=== PATIENT | female | born 1970 | race Caucasian/White ===

== ENCOUNTER 2016-12-10 07:03 | Observation (INO) | payer OTHER ==
[~2016-12-10] VITALS: Ht 172.7 cm; Wt 105.8 kg
--- NOTE | ~2016-12-10 | OR ---
PATIENT'S NAME: NATALI COLLINS [facility] AGE: 46 Y [address] ROOM: [place] [address] LOCATION: [facility] ADMIT DATE: 12/10/2016 OR/Procedure Report DISCHARGE DATE: FAMILY PHYSICIAN: Oscar Solano PA-C ATTENDING PHYSICIAN: DEONTE MCDONALD SURGEON: Deotne Mcdonald MD FISHING ROD TRIMMER: Tomas Anand MD. DATE OF PROCEDURE: 12/10/2016 PREOPERATIVE DIAGNOSES: 1. Abnormal uterine bleeding. 2. Chronic anemia. 3. Uterine prolapse, grade 3. POSTOPERATIVE DIAGNOSES: 1. Abnormal uterine bleeding. 2. Chronic anemia. 3. Uterine prolapse, grade 3. PROCEDURE PERFORMED: Total vaginal hysterectomy, bilateral salpingectomy, and sacrospinous ligament suspension. ANESTHESIA: Spinal. FINDINGS: Grade 3 prolapse of the cervix. Normal uterus and fallopian tubes. A 2-cm simple right ovarian cyst. Normal left ovary. Enterocele. ESTIMATED BLOOD LOSS: 100 mL. COMPLICATIONS: None. INDICATIONS: The patient is a 46-year-old female with abnormal uterine bleeding and chronic anemia due to her bleeding. She also complained of a prolapse of her uterus. Desired definitive surgical management. DESCRIPTION OF PROCEDURE: The patient was taken to the operating room where spinal anesthesia was placed. She was then placed in dorsal lithotomy position. She was prepped and draped in the usual sterile fashion. A time- out was performed. A weighted speculum was placed in the patient's vagina posteriorly, and a right angle retractor was used anteriorly. The cervix was visualized and grasped with a thyroid Filemon clamp. 1% lidocaine with epinephrine was injected circumferentially around the cervix at the cervicovaginal junction. A scalpel was then used to circumferentially incise at the cervicovaginal junction. Sharp and blunt dissection was then used to enter the abdomen anteriorly and posteriorly. Using the LigaSure device, the PATIENT'S NAME: NATALI COLLINS [facility] AGE: 46 Y [address] ROOM: [place] [address] LOCATION: [facility] ADMIT DATE: 12/10/2016 OR/Procedure Report DISCHARGE DATE: FAMILY PHYSICIAN: Oscar Solano PA-C ATTENDING PHYSICIAN: DEONTE MCDONALD uterosacral ligament on the patient's left was ligated and cut. The same was performed on the patient's right. The LigaSure was then used to ligate and cut the cardinal ligaments bilaterally. The same was performed with the LigaSure device bilaterally with the uterine arteries. The LigaSure was then used to ligate and cut the broad ligament bilaterally. Two tenaculums were then used to deliver the fundus posteriorly. A hysterectomy clamp was placed on the patient's left utero-ovarian ligament and fallopian tube. The LigaSure device was then used to ligate and cut this pedicle. The same was performed on the patient's right. Using an 0 Vicryl, the patient's left utero-ovarian ligament was ligated with a transfixing stitch. The same was performed on the patient's right. The patient's right fallopian tube was then grasped with a Teresita clamp. It was then clamped off with a hysterectomy clamp and excised and this was ligated with 0 Vicryl. The same was performed on the patient's left. Hemostasis was noted. A stitch was placed at the angle bringing the pedicle to the cuff with 0 Vicryl. This was performed bilaterally. The peritoneum was then closed with 2-0 Vicryl in a pursestring fashion. The vaginal cuff was then closed in a running locked fashion with 0 Vicryl. Attention was then paid to the posterior vagina which was injected with 1% lidocaine with epinephrine. A scalpel was then used to make a transverse incision on the posterior vaginal wall. The submucosa was then undermined and incised vertically in the midline with Metzenbaum scissors. The submucosa was dissected with sharp and blunt dissection. An enterocele was noted, this was repaired with 2-0 Vicryl in a pursestring fashion by closing the peritoneum and then another pursestring over that to close the defect. We then dissected out and identified the sacrospinous ligament, and a single interrupted stitch of 0 [place]-Patrice suture was placed in the belly of this ligament, it was then secured to the medial aspect of the vaginal cuff, this was tied down. This was performed on the patient's right. Redundant vaginal mucosa was then excised with Carlson scissors. The vaginal mucosa was then closed in a running continuous locked fashion with 0 Vicryl suture. Hemostasis was noted. Aguirre catheter was then inserted and all vaginal instruments were removed. Vaginal packing was placed. Instrument, sponge, and needle counts were correct at the conclusion of the case. DISPOSITION: The patient is stable to PACU. MD LILLY OLIVER/heide /[id number] d: 12/10/16 1758 t: 12/11/16 1119, OPERATIVE SUMMARY
--- NOTE | ~2016-12-10 | DS ---
PATIENT'S NAME: NATALI COLLINS [facility] AGE: 46 Y [address] ROOM: [address] [address] LOCATION: BS ADMIT DATE: 12/10/2016 Discharge Summary DISCHARGE DATE: 12/12/2016 FAMILY PHYSICIAN: Oscar Solano PA-C ATTENDING PHYSICIAN: Deonte Mcdonald DISCHARGE DIAGNOSES: 1. Status post total vaginal hysterectomy and bilateral salpingectomies. 2. Chronic anemia as well as anemia from acute blood loss. REASON FOR ADMISSION: Hysterectomy. PROCEDURES DURING ADMISSION: Total vaginal hysterectomy, bilateral salpingectomies, and sacrospinous ligament suspension. HOSPITAL COURSE: The patient is a 46-year-old female, who presented for scheduled hysterectomy. Her hemoglobin on admission was found to be 8.1 from her abnormal uterine bleeding. She underwent a total vaginal hysterectomy and bilateral salpingectomies as well as sacrospinous ligament suspension with an EBL 50 mL. Her hemoglobin on postoperative day #1 was 6.7, which was appropriate for receiving IV fluids and undergoing surgery. However, the patient was symptomatic, and therefore received 2 units packed red blood cells. She was ambulating, urinating, and tolerating p.o. and desired to be discharged home on postoperative #2. DISCHARGE INSTRUCTIONS: The patient is instructed nothing in vagina for 6 weeks. No lifting greater than 15 pounds. No driving on narcotics. She is to call if fever greater 100.4, heavy vaginal bleeding. FOLLOWUP: The patient will follow up in the clinic in 2 weeks. MD LILLY OLIVER/heide /[id number] d: 12/17/16318 t: 01/15/171922, DISCHARGE SUMMARY
[~2016-12-10 07:03] MED LIST: LEVOTHROID (S150 MCG PO; LISINOPRIL-HCT1 EAC1 PO; THERA-VITE W/ B1 TAB PO
[2016-12-10 07:43] LABS: BASOPHIL # 0.1 K/uL (0.0-0.2); BASOPHIL % 0.7 %; EOSINOPHIL # 0.2 K/uL (0.0-0.5); EOSINOPHIL % 2.1 %; HEMATOCRIT 28.5 % (33.0-46.0); HEMOGLOBIN 8.1 g/dL (10.0-15.0); IMMATURE GRANULOCYTE # 0.1 K/uL (0.0-0.3); IMMATURE GRANULOCYTE % 0.6 %; LYMPHOCYTE # 1.3 K/uL (0.8-4.0); LYMPHOCYTE % 14.4 %; MCH 23.5 pg (27.0-34.0); MCHC 28.4 gm/dL (32.0-36.5); MCV 82.6 fl (83.0-98.0); MONOCYTE # 0.7 K/uL (0.0-1.0); MONOCYTE % 8.2 %; MPV 9.2 fl (9.4-12.4); NEUTROPHIL # (ANC) 6.7 K/uL (1.8-7.8); NRBC % 0.2 /100WBC (0-0.00); PLATELET COUNT 315 K/uL (150-450); RBC 3.45 M/uL (3.50-5.50); RDW-CV 16.5 % (11.9-14.6)
[2016-12-11 04:52] LABS: HEMATOCRIT 23.7 % (33.0-46.0); MCH 23.4 pg (27.0-34.0); MCHC 28.3 gm/dL (32.0-36.5); MCV 82.9 fl (83.0-98.0); MPV 9.8 fl (9.4-12.4); RBC 2.86 M/uL (3.50-5.50); RDW-CV 16.5 % (11.9-14.6); WBC 10.7 K/uL (4.0-11.0)
[2016-12-11 05:00] LABS: HEMOGLOBIN 6.7 g/dL (10.0-15.0)
--- NOTE | 2016-12-11 05:52 | NUR ---
VSS, walters removed and vag packing removed at 0420. saline locked and patient up to bathroom and in chair, was symptomatic with hemoglobin of 6.7. Dr Mcdonald called and notified of HGB this am. Type and cross 2 units and transfuse.
--- NOTE | 2016-12-11 12:12 | NUR ---
d: 2 units PRBC infused w/o incident. Unit #[id number] Unit #[id number]
[2016-12-12] MEDS ORDERED: PERCOCET 5-3251 EACH PO (12:36)
[2016-12-12] MEDS ORDERED: MOTRIN800 MG PO (12:36)
[2016-12-12] MEDS ORDERED: FEOSOL325 MG PO (12:37)
[2016-12-12] MEDS ORDERED: COLACE100 MG PO (12:37)
== END 2016-12-12 13:00 | disposition disaster alternative care site (69) ==
LOC: GMSU 07:03 → GSDC 07:03 → GOBS 07:03 → GSDC 07:04 → GPOC 11:00 → GOBS 12-12 13:00 → GSDC 12-12 13:00
PROVIDERS: ADMIT Obstetrics & Gynecology
DX: D25.9 Leiomyoma of uterus, unspecified (principal); N81.3 Complete uterovaginal prolapse; N93.8 Other specified abnormal uterine and vaginal bleeding; D50.0 Iron deficiency anemia secondary to blood loss (chronic); I10 Essential (primary) hypertension; E03.9 Hypothyroidism, unspecified; Z87.891 Personal history of nicotine dependence; Z88.1 Allergy status to other antibiotic agents
CPT/HCPCS: J0694; J1100; J1885; J2001; J2250; J2405; J3010; J7030; J7120; P9016